=== PATIENT | male | born 1945 | race Asian ===

== ENCOUNTER 2024-10-06 00:54 | Emergency (ER) | payer MEDICARE, OTHER ==
[~2024-10-06] VITALS: Ht 172.7 cm; Wt 66.8 kg
[2024-10-06 00:54] VITALS: BP 0/0; O2SAT 80
[2024-10-06] MEDS ORDERED: CALCIUM CHLORIDE 100 MG/ML 10 ML SYRINGE IVP ONE (00:57)
[2024-10-06] MEDS ORDERED: SODIUM BICARBONATE [ADULT] 8.4% 50 MEQ/50 ML SYRINGE IVP ONE (00:57)
[2024-10-06] MEDS ORDERED: EPINEPHrine 1:10,000 [1 MG/10 ML] SYRINGE IVP ONE (00:57)
[2024-10-06] MEDS ORDERED: 0.9% SODIUM CHLORIDE 10 ML SYRINGE IVP ONE (00:57)
[2024-10-06 01:00] VITALS: PULSE 0; RESP 15; O2SAT 61
== END 2024-10-06 03:45 ==
LOC: EMS 00:56
DX: I46.9 Cardiac arrest, cause unspecified (principal); Z95.0 Presence of cardiac pacemaker
CPT/HCPCS: 99285; 92950; J0169; J3490 ×2